=== PATIENT | male | born 1965 | race Caucasian/White ===

== ENCOUNTER 2022-12-24 09:01 | Outpatient (OUT) | payer OTHER, SELFPAY ==
--- NOTE | 2022-12-24 09:18 | ECG_ITS ---
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
--- NOTE | 2022-12-24 09:19 | XR_ITS ---
The [address] [address] Patient Name: EVGENY MARTINEZ MRN: [id number] date: 1965 Sex: M Assigned Patient Location: [facility] Current Patient Location: [facility] Accession/Order Number: [id number] Exam Date: 12/24/2022 10:08 Report Date: 12/24/2022 11:14 At the request of: IVAN CRUZ Procedure: XR chest 2V EXAM: Chest x-ray HISTORY: . PRE OP EXAM . COMPARISON: None. TECHNIQUE: Frontal and lateral chest FINDINGS: Heart and vascularity are unremarkable. There is hyperexpansion of lungs and flattening of the hemidiaphragms suggesting COPD. Lungs are free of focal infiltrates. Early spondylosis of the spine is noted. XR/XR chest 2V IMPRESSION: 1 findings suggestive of early COPD. 2. No acute heart or lung disease identified. Electronically authenticated by: LISA RECIO Date: 12/24/2022 11:14
[2022-12-24 10:08] LABS: Basophils Absolute Auto 0.1 10^3/uL (0.0-0.1); Basophils Percent Auto 0.5 % (0.2-2.0); Eosinophils Absolute Auto 0.1 10^3/uL (0.0-0.7); Eosinophils Percent Auto 0.7 % (0.9-7.0); Hematocrit 44.1 % (42.0-54.0); Immature Granulocytes Abs Auto 0.06 10^3/uL (0.00-0.03); Immature Granulocytes Pct Auto 0.4 % (0.0-0.5); Lymphocytes Absolute Auto 4.1 10^3/uL (1.2-3.8); Lymphocytes Percent Auto 26.7 % (20.5-60.0); Mean Corpuscular Hemoglobin 30.5 pg (25.9-34.0); Mean Corpuscular Volume 89.8 fL (80.0-94.0); Mean Platelet Volume 8.9 fL (9.5-13.5); Monocytes Absolute Auto 0.6 10^3/uL (0.3-0.8); Neutrophils Absolute Auto 10.3 10^3/uL (1.4-6.5); Neutrophils Percent Auto 67.7 % (43.0-75.0); Platelet Count 334 10^3/uL (150-450); Red Blood Count 4.91 10^6/uL (4.70-6.10); Red Cell Distribution Width 13.3 % (11.0-15.0); White Blood Count 15.2 10^3/uL (4.0-11.0)
--- NOTE | 2022-12-24 10:08 | PM.PRESUREVA ---
History of Present Illness History of Present Illness Chief complaint: bladder tumors, lesions, history of bladder cancer Narrative: Patient presents for preadmission testing. Please see HPI from Dr. Fong dated 12/22/2022. Review of Systems ROS Narrative Please see ROS from Dr. Fong dated 12/22/2022. [facility] Medical History (Updated 12/24/22 @ 09:47 by Odalis Lawson NP) Surgical History (Updated 12/24/22 @ 10:07 by Odalis Lawson NP) Family History (Updated 12/24/22 @ 09:47 by Odalis Lawson NP) Other Family history of diabetes mellitus Social History (Updated 12/24/22 @ 09:41 by Odalis Lawson NP) Within the past year, how often did you have a drink containing alcohol: never Score interpretation: A score less than 4 is consistent with normal alcohol consumption. 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 Highest level of school completed/degree received: high school graduate Meds Home Medications and Allergies Home Medications Medication Instructions Recorded Confirmed Type lisinopril 10 mg tablet 10 mg PO DAILY 12/24/22 12/24/22 History metoprolol tartrate 25 mg tablet 25 mg PO DAILY 12/24/22 12/24/22 History simvastatin 10 mg tablet 10 mg PO DAILY 12/24/22 12/24/22 History Allergies Allergy/AdvReac Type Severity Reaction Status Date / Time No Known Drug Allergies Allergy Verified 12/24/22 09:39 Exam Narrative Exam Narrative: Constitutional: Awake, alert, comfortable, well-appearing, nontoxic, interactive, vital signs as charted Head: Normocephalic, atraumatic Eyes: Obvious nystagmus Neck: Supple, normal appearance, normal range of motion, no meningeal signs, no lymphadenopathy Respiratory: No respiratory distress, breath sounds clear Cardiovascular: Regular rate and rhythm, strong and regular heart tones Abdomen: Nontender, normal bowel sounds, soft, no CVA tenderness Musculoskeletal: Normal gait, no swelling or edema Skin: No rashes or induration, no lesions, only visible skin inspected Neuro: No neurological deficits, normal sensation Psychiatric: Oriented ?3, normal affect Assessment and Plan Assessment and Plan (1) Bladder cancer: (2) Bladder tumor: Plan Cystoscopy, TURBT scheduled with Dr. Fong 12/31/2022.
[2022-12-24 10:25] LABS: INR 1.08; Partial Thromboplastin Time 29.1 sec (22.3-36.2); Prothrombin Time 11.4 sec (9.0-11.6)
[2022-12-24 10:56] LABS: Anion Gap 14.1; BUN Creatinine Ratio 14.3; Calcium 9.6 mg/dL (8.5-10.1); Carbon Dioxide 27.2 mmol/L (21.0-32.0); Chloride 100 mmol/L (98-107); Estimated GFR (African America >60 (>=60); Estimated GFR (Non-African Ame >60 (>=60); Glucose 141 mg/dL (74-106); Potassium 4.3 mmol/L (3.5-5.1); Sodium 137 mmol/L (136-145)
== END 2022-12-24 09:02 | disposition home or self-care (01) ==
PROVIDERS: PCP Internal Medicine; Visit Provider Urology
DX: Z01.810 Encounter for preprocedural cardiovascular examination (principal); Z01.812 Encounter for preprocedural laboratory examination; R91.8 Other nonspecific abnormal finding of lung field; Z85.51 Personal history of malignant neoplasm of bladder; N32.9 Bladder disorder, unspecified; R31.9 Hematuria, unspecified; E78.00 Pure hypercholesterolemia, unspecified; I10 Essential (primary) hypertension; Z79.899 Other long term (current) drug therapy
CPT/HCPCS: 71046; 80048; 85025; 85610; 85730; 93005; G0463

== ENCOUNTER 2022-12-31 08:22 | Day surgery (SDC) | payer OTHER, SELFPAY ==
[2022-12-24 10:04] VITALS: BP 131/77; PULSE 91; RESP 16; TEMP 36.2; O2SAT 97; BMI 32.0
[2022-12-31] VITALS (16 sets, daily range): BP systolic 133–174; BP diastolic 77–99; PULSE 65–87; RESP 8–24; TEMP 36.2–36.4; O2SAT 92–98; BMI 32.1
[2022-12-31] MEDS: LACTATED RINGER'S SOLUTION 1,000 ML 50 ML IV (08:51)
[2022-12-31] MEDS: MIDAZOLAM HCL 2 MG/2 ML VIAL IV (10:08)
[2022-12-31] MEDS: CEFAZOLIN SODIUM/DEXTROSE,ISO 1 GM/50 ML IV.SOLN IV (10:09)
--- NOTE | 2022-12-31 11:04 | P.URON_ITS ---
Urology Surgery Operative Note Operative Note Procedure Date: 12/31/22 Time Out Performed: yes Pre-op Diagnosis: Recurrent bladder tumors Post-op Diagnosis: same as pre-op Procedures performed: #1. Cystoscopy. #2. Transurethral resection of bladder tumors approximately 4 cm Anesthesia: CHRISTIANA Primary Surgeon: Lan Fong Complications: non- Estimated blood loss (mL): 5 Findings: one 3-4 cm tumor lateral to the left ureter. Several subcentimeter satellite lesions adjacent to this and 11 cm tumor on the back wall. Specimens: bladder tumors Drains: 22 [place]ander three-way coud? Mejia catheter Indications for Procedures: this gentleman has a history of low-grade noninvasive TCC of the bladder. On surveillance cystoscopy he was found to have multiple recurrent tumors. He now presents for cystoscopy and transurethral resection of bladder tumors. He has signed an informed consent after all risks were explained to him. Detailed description of Procedure: The patient was brought to the operating room and placed on the operating room table in the supine position. SCDs were placed on the lower extremities and turned on and functioning during the entire case. Timeout was done by all parties in the room. We all agreed upon the patient's identification and the planned procedures for this patient. Genn. anesthesia was then administered. The patient was then repositioned into the modified dorsal lithotomy position. All pressure points were satisfactorily padded. Genitalia were sterilely prepped and draped in usual fashion.I started by passing a 26 [place]ander Olympus resectoscope with the standard bipolar loop electrode per urethra and into the bladder. The anterior urethra was normal. The prostatic urethra showed trilobar obstruction with an extremely high large median lobe protruding anteriorly. Careful panendoscopy in the bladder showed the previously noted tumors lateral to the left UO and on the floor of the bladder. There was an additional tumor found on the back wall. I started on the large tumoor lateral to the left wall. I uniformly resected this down to its attachment and then deeply resected the attachment so as to facilitate accurate staging. I then resected the satellite lesions adjacent to this large tumor. I was able to spare the ureteral orifice. I in fact could see clear urine E flexing from the UO when I was done resecting this area. The resection beds were coagulated with the loop electrode. I then carefully inspected the rest of the bladder and found an additional tumor on the back wall. This was about 5-10 mm in size. I uniformly and deeply resected this tumor. The resection bed was similarly coagulated. The [place] evacuator was used to get all tumor pieces out of the bladder and these were sent for permanent sections. Upon completion, there was no evidence of bleeding. There were no tumors remaining in the bladder. Clear urine effluxed from the left UO. The scope was then removed. I then passed a 22 [place] three-way coud? Mejia catheter in the bladder. 30 mL of fluid was placed in the balloon. The irrigation port was plugged. Leg bag was attached. It drained clear. The anesthetic was then reversed. He was then transferred to a [facility] bed and wheeled to PACU in stable condition. He'll be discharged to home later today with a prescription for Ke flex 500 mg twice a day for a week. Follow-up will be in one week for catheter removal and to review the pathology.
[2022-12-31] MEDS: HYDROMORPHONE HCL 0.5 MG/0.5 ML SYRINGE 0.4 MG IV ×2 (11:14→11:27)
--- NOTE | 2022-12-31 11:52 | PC.NURSE ---
BLOOD TINGED URINE NO CTS
== END 2022-12-31 12:59 | disposition home or self-care (01) ==
PROVIDERS: PCP Internal Medicine; Visit Provider Urology
PROC: (CPT 52235; principal; 2022-12-31 09:30)
DX: C67.9 Malignant neoplasm of bladder, unspecified (principal); Z85.51 Personal history of malignant neoplasm of bladder; Z87.891 Personal history of nicotine dependence; N40.1 Benign prostatic hyperplasia with lower urinary tract symptoms; R97.20 Elevated prostate specific antigen [PSA]; I10 Essential (primary) hypertension; E78.00 Pure hypercholesterolemia, unspecified; E66.9 Obesity, unspecified; R31.21 Asymptomatic microscopic hematuria; N41.9 Inflammatory disease of prostate, unspecified; R39.14 Feeling of incomplete bladder emptying; Z68.32 Body mass index [BMI] 32.0-32.9, adult
CPT/HCPCS: 52235; 36415; 88307; J1170; J2704

== ENCOUNTER 2023-01-21 07:32 | Outpatient (RCR) | payer OTHER, SELFPAY ==
[2023-01-21] MEDS: MITOMYCIN 40 MG in WATER FOR INJECTION,STERILE 20 ML 20 MG INTRAVESIC (09:30)
[2023-01-21 09:59] VITALS: BP 165/96; PULSE 87; RESP 16; TEMP 36.9; O2SAT 94
--- NOTE | 2023-01-21 10:04 | PC.NURSE ---
0830: Pt. to [facility] amb. for Mitomycin treatment. Consent form reviewed with patient, questions addressed. Pt given privacy to undress. Pt. to supine position on bed. Using sterile technique, #[id number]. woodall cath. inserted into bladder without diffiulty. Immediate return of clear yellow urine. Pt. tolerated with mod. c/o discomfort. Bladder emptied for 600cc urine. 0930: Dosage and drug verified with DORIS Cervantes. Mitomycin 40mg, instilled into bladder via woodall cath. Clamped. Instructed pt. to turn side to side and front to back every 15min. x's 1hr. Pt. relays understanding. 0945: Pt. tolerating medication with minimal c/o burning sensation to bladder. Turns to side as instructed. Denies needs or c/o. 1000: Pt. without change. Cont. to turn as directed. Denies needs.
[2023-01-21 11:15] VITALS: BP 158/90; PULSE 79; RESP 14; TEMP 36.6; O2SAT 96
--- NOTE | 2023-01-21 11:16 | PC.NURSE ---
1035: Pt. relays bladder feeling extremely full . Describes slight burning to bladder. Mejia drainage bag reconnected and bladder drained for 650cc pale purple colored urine. No redness or irritation observed to penis or rosemarie area. 1043: Mejia cath removed at this time. Pt. tolerated with min. c/o discomfort. Given privacy to dress. 1055: D/c instruction sheet provided for home care precautions. Pt. relays understanding. D/c'd amb. to home.
== END 2023-01-26 23:59 | disposition home or self-care (01) ==
LOC: INF 07:32
PROVIDERS: PCP Internal Medicine; Visit Provider Urology
DX: Z85.51 Personal history of malignant neoplasm of bladder (principal); C67.9 Malignant neoplasm of bladder, unspecified
CPT/HCPCS: 51700; J9280

== ENCOUNTER 2023-02-25 07:28 | Outpatient (RCR) | payer OTHER, SELFPAY ==
[2023-02-25 09:03] VITALS: BP 170/97; PULSE 89; RESP 16; TEMP 36.4; O2SAT 98
--- NOTE | 2023-02-25 09:05 | PC.NURSE ---
0855 arrival ambulatory, instructed on procedure, verbalized understanding. 0900#16 persian woodall catheter inserted under sterile technique, clear yellow urine returned, balloon inflated with10 ml sterile saline, connected to bedside drainage bag, patient tolerated well.
[2023-02-25] MEDS: MITOMYCIN 40 MG in WATER FOR INJECTION,STERILE 20 ML 20 MG INTRAVESIC (09:20)
--- NOTE | 2023-02-25 09:28 | PC.NURSE ---
0925 Mitomycin instilled via woodall catheter, patient tolerates well. woodall catheter plugged, instructed on turning left to right front to back every 15 mins for 90 mins, verbalized understanding
--- NOTE | 2023-02-25 09:45 | PC.NURSE ---
0940 repositioned to left side, tolerating well no c/o offered
--- NOTE | 2023-02-25 09:58 | PC.NURSE ---
0955 repositioned toabdomen, tolerating well without any complaints
--- NOTE | 2023-02-25 10:34 | PC.NURSE ---
1025 repostioned to back, tolerating treatment without difficulty
--- NOTE | 2023-02-25 10:43 | PC.NURSE ---
1043 repositioned to left side.
--- NOTE | 2023-02-25 11:20 | PC.NURSE ---
1055 woodall connected to bedside drain, allowed to drain for approx 5 mins, drained greater than 500 ml of bluish tinted urine. woodall dc'd, patient tolerated well. Given precaution sheets for post mitomycin therapy. released ambulatory
[2023-02-25 11:23] VITALS: BP 150/78
== END 2023-02-25 23:59 | disposition home or self-care (01) ==
LOC: INF 07:28
PROVIDERS: PCP Internal Medicine; Visit Provider Internal Medicine
DX: Z85.51 Personal history of malignant neoplasm of bladder (principal)
CPT/HCPCS: 51700; J9280